=== PATIENT | male | born 1945 | race Caucasian/White ===

== ENCOUNTER 2018-02-05 14:32 | Emergency (ER) | payer BC ==
--- NOTE | 2018-02-05 14:46 | CPEKG ---
Heart Rate: 62 RR Interval: 968 P-R Interval: 200 QRSD Interval: 88 QT Interval: 420 QTC Interval: 427 P [place]: 26 QRS [place]: -48 T Wave [place]: 38 EKG Severity - ABNORMAL ECG - EKG Impression: SINUS RHYTHM EKG Impression: LEFT ANTERIOR FASCICULAR BLOCK Electronically Signed By: James Perez 05-Feb-2018 15:10:28
--- NOTE | 2018-02-05 15:09 | EDPHY ---
H & P Stated Complaint: loss of coordination Time Seen by Provider: 02/05/18 14:54 HPI/ROS: CHIEF COMPLAINT: Pre syncope HISTORY OF PRESENT ILLNESS: The patient is a 72-year-old man who reports that over the last 3 days he has had several pre-syncopal episodes. He states that both Friday and Friday he had been sitting and reading and when he stood up felt that his arms and legs went "all noodley". His symptoms resolved each time after about 10 min. He also noticed the same today but describes it as more lightheaded feeling when he stood up to get out of his car. He denies chest pain or shortness of breath associated with these episodes. He denies palpitations. No headache. He did denies ever having any history of cardiac or pulmonary disease. He did travel to [place] 2 weeks ago. He has not had any leg pain or shortness of breath. He states that he is getting over a slight cold that he got about a week ago. Denies vertigo symptoms. No nausea vomiting. Does not feel dehydrated. He has chronic neck pain and degenerative disc disease but states that is unchanged. No recent trauma. He has not had any persistent weakness, tingling or numbness. No bowel or bladder abnormalities. No difficulty walking. REVIEW OF SYSTEMS: Constitutional: denies: chills, fever, recent illness, recent injury EENTM: denies: blurred vision, double vision, nose congestion Respiratory: denies: cough, shortness of breath Cardiac: See HPI denies: chest pain, irregular heart rate, lightheadedness, palpitations Gastrointestinal/Abdominal: denies: abdominal pain, diarrhea, nausea, vomiting, blood streaked stools Genitourinary: denies: dysuria, frequency, hematuria, pain Musculoskeletal: denies: joint pain, muscle pain Skin: denies: lesions, rash, jaundice, bruising Neurological: See HPI denies: headache, numbness, paresthesia, tingling, dizziness, weakness Hematologic/Lymphatic: denies: blood clots, easy bleeding, easy bruising Immunologic/allergic: denies: HIV/AIDS, transplant EXAM: GENERAL: Well-appearing, well-nourished and in no acute distress. HEAD: Atraumatic, normocephalic. EYES: Pupils equal round and reactive to light, extraocular movements intact, sclera anicteric, conjunctiva are normal. ENT: TMs normal, nares patent, oropharynx clear without exudates. Moist mucous membranes. NECK: Normal range of motion, supple without lymphadenopathy or JVD. LUNGS: Breath sounds clear to auscultation bilaterally and equal. No wheezes rales or rhonchi. HEART: Regular rate and rhythm without murmurs, rubs or gallops. ABDOMEN: Soft, nontender, normoactive bowel sounds. No guarding, no rebound. No masses appreciated. BACK: No CVA tenderness, no spinal tenderness, step-offs or deformities EXTREMITIES: Normal range of motion, no pitting or edema. No clubbing or cyanosis. NEUROLOGICAL: Cranial nerves II through XII grossly intact. Normal speech, normal gait. 5/5 strength in all 4 extremities, normal movement in all extremities, normal sensation PSYCH: Normal mood, normal affect. SKIN: Warm, dry, normal turgor, no visible rashes or lesions. Source: Patient Exam Limitations: No limitations - Personal History Current Tetanus/Diphtheria Vaccine: Unsure Current Tetanus Diphtheria and Acellular Pertussis (TDAP): Unsure - Medical/Surgical History Hx Asthma: No Hx Chronic Respiratory Disease: No Hx Diabetes: No Hx Cardiac Disease: No Hx Renal Disease: No Hx Cirrhosis: No Hx Alcoholism: No Hx HIV/AIDS: No Hx Splenectomy or Spleen Trauma: No Other PMH: DDD, inguinal hernia repair - Family History Significant Family History: No pertinent family hx - Social History Smoking Status: Never smoked Alcohol Use: None Constitutional: Initial Vital Signs Temperature (C) 36.6 C 02/05/18 14:37 Heart Rate 63 02/05/18 14:37 Respiratory Rate 16 02/05/18 14:37 Blood Pressure 141/80 H 02/05/18 14:37 O2 Sat (%) 96 02/05/18 14:37 O2 Delivery Mode Room Air Allergies/Adverse Reactions: Penicillins Allergy (Verified 02/05/18 14:36) Home Medications: Medication Instructions Recorded Advil 02/05/18 Medical Decision Making - Diagnostics EKG Interpretation: An EKG obtained and was read and documented in trace view. Please see trace view for full reading and report. Sinus rhythm, no acute ischemic changes Imaging Results: Imaging Impressions Chest X-Ray 02/05/18 15:06 Impression: 1. Airways disease +- interstitial lung disease. If differentiation is important, then consider high-resolution noncontrast chest CT. 2. Prominent pulmonary vascularity. This may represent pulmonary venous hypertension. 3. Left lung nodule. Recommend repeat chest x-ray with nipple markers, one with the arms over the head and one with arms at the sides. Results called to Dr. Perez at 3:44 PM Imaging: Discussed imaging studies w/ call or contact centre team leader Radiologist ED Course/Re-evaluation: 3:55 p.m. I recommended admission and for his presyncopal symptoms despite normal workup thus far. The patient declines. He states that he would prefer to follow up as an outpatient. He understands that we cannot rule acute coronary disease or arrhythmia. His blood pressure is normal here. We will obtain orthostatics blood pressures. I will refer him to Cardiology. 4:30 p.m. the patient completed orthostatic vital signs and remained normotensive and had normal heart rate. He feels much better and is eager to go home. He declines further workup or testing at this time. We discussed the importance of following up. We also discussed indications for returning. Differential Diagnosis: Partial list of the Differential diagnosis considered include but were not limited to; pre syncope, hypotension, electrolyte imbalance and although unlikely based on the history and physical exam, I also considered infection, head injury, cervical spine injury, CVA. I discussed these differential diagnoses and the plan with the patient as well as the usual and expected course. The patient understands that the diagnosis is provisional and that in medicine we are not always correct and that further workup is often warranted. Usual and customary warnings were given. All of the patient's questions were answered. The patient was instructed to return to the emergency department should the symptoms at all worsen or return, otherwise to followup with the physician as we discussed. - Data Points Laboratory Results: Laboratory Results 02/05/18 14:45 02/05/18 14:45 02/05/18 02/05/18 02/05/18 15:18 14:45 14:45 WBC RBC Hgb Hct MCV MCH MCHC RDW Plt Count MPV Neut % (Auto) Lymph % (Auto) [place] % (Auto) Eos % (Auto) Baso % (Auto) Nucleat RBC Rel Count Absolute Neuts (auto) Absolute Lymphs (auto) Absolute Monos (auto) Absolute Eos (auto) Absolute Basos (auto) Absolute Nucleated RBC Immature Gran % Immature Gran # PT 13.3 SEC SEC (12.0-15.0) INR 0.99 (0.83-1.16) APTT 27.1 SEC SEC (23.0-38.0) D-Dimer < 0.27 ug/mLFEU ug/mLFEU (0.00-0.50) Sodium 140 mEq/L mEq/L (135-145) Potassium 4.4 mEq/L mEq/L (3.3-5.0) Chloride 104 mEq/L mEq/L (97-110) Carbon Dioxide 25 mEq/l mEq/l (22-31) Anion Gap 11 mEq/L mEq/L (8-16) BUN 27 mg/dL H mg/dL (7-23) Creatinine 1.0 mg/dL mg/dL (0.7-1.3) Estimated GFR > 60 Glucose 87 mg/dL mg/dL (70-100) Calcium 9.3 mg/dL mg/dL (8.5-10.4) Total Bilirubin 0.8 mg/dL mg/dL (0.1-1.4) Conjugated Bilirubin 0.5 mg/dL mg/dL (0.0-0.5) Unconjugated Bilirubin 0.3 mg/dL mg/dL (0.0-1.1) AST 18 IU/L IU/L (17-59) ALT 25 IU/L IU/L (21-72) Alkaline Phosphatase 77 IU/L IU/L (38-126) Creatine Kinase 45 IU/L IU/L (0-224) CK-MB (CK-2) Fraction 0.91 ng/mL ng/mL (0.00-4.55) POC Troponin I 0.00 ng/mL ng/mL (0.00-0.08) Total Protein 6.6 g/dL g/dL (6.3-8.2) Albumin 4.0 g/dL g/dL (3.5-5.0) 02/05/18 14:45 WBC 8.62 10^3/uL 10^3/uL (3.80-9.50) RBC 5.55 10^6/uL 10^6/uL (4.40-6.38) Hgb 17.0 g/dL g/dL (13.7-17.5) Hct 49.6 % % (40.0-51.0) MCV 89.4 fL fL (81.5-99.8) MCH 30.6 pg pg (27.9-34.1) MCHC 34.3 g/dL g/dL (32.4-36.7) RDW 12.5 % % (11.5-15.2) Plt Count 355 10^3/uL 10^3/uL (150-400) MPV 9.9 fL fL (8.7-11.7) Neut % (Auto) 56.7 % % (39.3-74.2) Lymph % (Auto) 29.4 % % (15.0-45.0) [place] % (Auto) 9.3 % % (4.5-13.0) Eos % (Auto) 3.7 % % (0.6-7.6) Baso % (Auto) 0.7 % % (0.3-1.7) Nucleat RBC Rel Count 0.0 % % (0.0-0.2) Absolute Neuts (auto) 4.89 10^3/uL 10^3/uL (1.70-6.50) Absolute Lymphs (auto) 2.53 10^3/uL 10^3/uL (1.00-3.00) Absolute Monos (auto) 0.80 10^3/uL 10^3/uL (0.30-0.80) Absolute Eos (auto) 0.32 10^3/uL 10^3/uL (0.03-0.40) Absolute Basos (auto) 0.06 10^3/uL 10^3/uL (0.02-0.10) Absolute Nucleated RBC 0.00 10^3/uL 10^3/uL (0-0.01) Immature Gran % 0.2 % % (0.0-1.1) Immature Gran # 0.02 10^3/uL 10^3/uL (0.00-0.10) PT INR APTT D-Dimer Sodium Potassium Chloride Carbon Dioxide Anion Gap BUN Creatinine Estimated GFR Glucose Calcium Total Bilirubin Conjugated Bilirubin Unconjugated Bilirubin AST ALT Alkaline Phosphatase Creatine Kinase CK-MB (CK-2) Fraction POC Troponin I Total Protein Albumin Point of Care Test Results: Chemistry 02/05/18 15:18 POC Troponin I 0.00 ng/mL ng/mL (0.00-0.08) Departure - Departure Disposition: Home, Routine, Self-Care Clinical Impression: Pre-syncope Condition: Fair Instructions: Near Syncope (ED) Referrals: Obinna Farr MD [Primary Care Provider] - 2-3 days, call for appt. Mor Castaneda MD [Medical Doctor] - 1-2 days without fail
[2018-02-05 15:15] LABS: PLATELET COUNT 355 10^3/uL (150-400)
[2018-02-05 15:24] LABS: CREATINE KINASE 45 IU/L (0-224)
[2018-02-05 15:28] LABS: INR 0.99 (0.83-1.16); PROTIME(PATIENT) 13.3 SEC (12.0-15.0)
[2018-02-05 16:46] VITALS: BP 144/84
== END 2018-02-05 16:46 | disposition home or self-care (01) ==
DX: R55 Syncope and collapse (principal)
CPT/HCPCS: 84484-PO